=== PATIENT | female | born 1985 | race Caucasian/White ===

== ENCOUNTER 2017-07-13 13:20 | Emergency (ER) | payer OTHER ==
[~2017-07-13] VITALS: Ht 157.5 cm; Wt 102.0 kg
[2017-07-13 13:22] VITALS: BP 129/100; Ht 157.5 cm; Wt 102.0 kg
== END 2017-07-13 13:59 | disposition home or self-care (01) ==
LOC: ED 13:20
DX: N93.8 Other specified abnormal uterine and vaginal bleeding (principal); N39.0 Urinary tract infection, site not specified; Z90.49 Acquired absence of other specified parts of digestive tract
CPT/HCPCS: 87491; 87591

== ENCOUNTER 2017-08-02 19:42 | Emergency (ER) | payer OTHER ==
[~2017-08-02] VITALS: Ht 157.5 cm; Wt 96.2 kg
[2017-08-02 19:53] VITALS: Ht 157.5 cm; Wt 96.2 kg
[2017-08-02 21:42] VITALS: BP 122/91
== END 2017-08-02 21:42 | disposition home or self-care (01) ==
LOC: ED 19:42
DX: N39.0 Urinary tract infection, site not specified (principal)

== ENCOUNTER 2018-03-10 02:45 | Emergency (ER) | payer OTHER ==
[~2018-03-10] VITALS: Ht 157.5 cm; Wt 96.2 kg
[2018-03-10 02:55] VITALS: Ht 157.5 cm; Wt 96.2 kg
[2018-03-10 05:13] VITALS: BP 127/74
== END 2018-03-10 05:13 | disposition home or self-care (01) ==
LOC: ED 02:45
DX: S29.012A Strain of muscle and tendon of back wall of thorax, initial encounter (principal); Z98.890 Other specified postprocedural states; W18.39XA Other fall on same level, initial encounter; Y93.89 Activity, other specified; Y92.89 Other specified places as the place of occurrence of the external cause; Y99.8 Other external cause status
CPT/HCPCS: 72072; J1885

== ENCOUNTER 2018-07-24 22:49 | Emergency (ER) | payer OTHER ==
[~2018-07-24] VITALS: Ht 157.5 cm; Wt 100.7 kg
[2018-07-24 23:02] VITALS: Ht 157.5 cm; Wt 100.7 kg
[2018-07-24 23:22] LABS: BASOPHIL % 1.1 % (0-2); PLATELET COUNT 253 x10^3mcL (130-400)
[2018-07-24 23:31] LABS: RED CELL DISTRIBUTION WIDTH 15.6 % (11.5-14.5)
[2018-07-24 23:37] LABS: CALCIUM 8.3 mg/dL (8.5-10.1); CARBON DIOXIDE 26.4 mmol/L (21-32); CHLORIDE SERUM 103 mmol/L (98-107); CREATININE SERUM 0.8 mg/dL (0.6-1.0); GFR1 > 60 mL/min; GLUCOSE SERUM 113 mg/dL (74-106); POTASSIUM SERUM 4.1 mmol/L (3.5-5.1); SODIUM SERUM 138 mmol/L (136-145)
[2018-07-24 23:40] LABS: ALBUMIN 3.7 g/dL (3.4-5.0); ALKALINE PHOSPHATASE 117 U/L (46-116); ALT/SGPT 34 U/L (14-59); AST/SGOT 21 U/L (15-37); BILIRUBIN TOTAL 0.1 mg/dL (0.20-1.00); TOTAL PROTEIN, SERUM 8.2 g/dL (6.4-8.2)
[2018-07-25 01:12] VITALS: BP 121/72
== END 2018-07-25 01:12 | disposition home or self-care (01) ==
LOC: ED 22:49
PROVIDERS: Emergency Medicine
DX: R07.89 Other chest pain (principal); R91.1 Solitary pulmonary nodule; Z98.890 Other specified postprocedural states
CPT/HCPCS: J1885; J2270; J7030; Q0092; Q9967

== ENCOUNTER 2019-12-28 02:09 | Emergency (ER) | payer MEDICAID, SELFPAY ==
[~2019-12-28] VITALS: Ht 157.5 cm; Wt 90.7 kg
[2019-12-28 02:10] VITALS: BP 129/95; Ht 157.5 cm; Wt 90.7 kg
== END 2019-12-28 03:30 | disposition home or self-care (01) ==
LOC: ED 02:09
DX: U07.1 COVID-19 (principal)
CPT/HCPCS: U0003-CS

== ENCOUNTER 2020-05-08 03:29 | Emergency (ER) | payer MEDICAID, SELFPAY ==
[~2020-05-08] VITALS: Ht 157.5 cm; Wt 97.5 kg
[2020-05-08 03:31] VITALS: Ht 157.5 cm; Wt 97.5 kg
[2020-05-08 04:53] VITALS: BP 130/82
== END 2020-05-08 04:53 | disposition home or self-care (01) ==
LOC: ED 03:29
DX: R50.9 Fever, unspecified (principal); R53.1 Weakness; R43.8 Other disturbances of smell and taste; J02.9 Acute pharyngitis, unspecified; Z20.828 Contact with and (suspected) exposure to other viral communicable diseases
CPT/HCPCS: U0003